=== PATIENT | male | born 1935 | race Caucasian/White ===

== ENCOUNTER 2018-09-27 20:13 | Inpatient (IN) | payer OTHER ==
[~2018-09-27] VITALS: Ht 175.3 cm; Wt 77.7 kg
[~2018-09-27 20:13] MED LIST: ASPIRIN; AVODART0.5 MG PO; TYLENOL
[2018-09-27] MEDS ORDERED: ONDANSETRON HCL INJ 2 MG/ML VIAL IV STA (21:10)
[2018-09-27] MEDS ORDERED: SODIUM CHLORIDE 0.9% 1000ML 1,000 ML IV ONE (21:15)
[2018-09-27] MEDS ORDERED: DIATRIZOATE MEGL/DIATRIZOA SOD 30 ML BTL PO ONE (22:10)
[2018-09-27 22:57] LABS: BASOPHILS % 0.4 % (0.0-1.0); HEMATOCRIT 49.3 % (38.2-49.6); HEMOGLOBIN 16.3 g/dL (14.0-18.0); LYMPHOCYTES # (AUTO) 0.4 (1.0-3.2); LYMPHOCYTES % 3.9 % (18.0-39.1); MEAN CORPUSCULAR HEMOGLOBIN 31.1 pg (28-32); MEAN CORPUSCULAR HGB CONC 33.1 g/dL (31-35); MEAN CORPUSCULAR VOLUME 94.1 fL (81-99); MONOCYTES # (AUTO) 0.4 (0.2-0.8); NEUTROPHILS # (AUTO) 9.8 (2.1-6.9); NEUTROPHILS % 91.3 % (38.7-80.0); PLATELET COUNT 277 x10e3/uL (140-360); RED BLOOD COUNT 5.24 x10e6/uL (4.3-5.7); RED CELL DISTRIBUTION WIDTH 12.8 % (11.7-14.4)
[2018-09-27 23:08] LABS: ALANINE AMINOTRANSFERASE 22 IU/L (0-55); ALBUMIN/GLOBULIN RATIO 1.1 (0.8-2.0); ALKALINE PHOSPHATASE 95 IU/L (40-150); AMYLASE 81 U/L (25-125); ANION GAP 13.8 mmol/L (8-16); BLOOD UREA NITROGEN 13 mg/dL (7-26); BUN/CREATININE RATIO 12 (6-25); CALCIUM 8.9 mg/dL (8.4-10.2); CARBON DIOXIDE 26 mmol/L (22-29); CHLORIDE 99 mmol/L (98-107); CREATININE, SERUM 1.12 mg/dL (0.72-1.25); EST GLOMERULAR FILTRATION RATE > 60 ML/MIN (60-); GLUCOSE 166 mg/dL (74-118); LIPASE 26 U/L (8-78); POTASSIUM 3.8 mmol/L (3.5-5.1); SODIUM 135 mmol/L (136-145)
[2018-09-27] MEDS ORDERED: SODIUM CHLORIDE 0.9% 50ML 50 ML ONE (23:36)
[2018-09-27] MEDS ORDERED: IOPAMIDOL 370 MG/ML 200 ML INFUS..BTL INJ ONE (23:36)
--- NOTE | 2018-09-28 00:21 | Diagnostic Imaging Report ---
EXAM: CT ABDOMEN AND PELVIS with IV CONTRAST DATE: 09/27/2018 9:10 PM Time stamp on Exam: 2348 hours INDICATION: Abdominal pain, nausea and vomiting COMPARISON: None TECHNIQUE: The abdomen and pelvis were scanned using a multidetector helical scanner. Coronal and sagittal reformations were obtained. Dose modulation, iterative reconstruction, and/or weight based adjustment of the mA/kV was utilized to reduce the radiation dose to as low as reasonably achievable. Routine protocol performed. IV Contrast: 100 cc Isovue 370 Oral Contrast: Gastrografin FINDINGS: LOWER THORAX: Bibasilar linear atelectasis. Pulmonary nodules in the left lung base measuring 6 mm and 7 mm. LIVER: No masses BILIARY: The gallbladder is contracted around gallstones. SPLEEN: No masses PANCREAS: No masses ADRENALS: No nodules KIDNEYS: Symmetric perfusion. No enhancing masses. No hydronephrosis. GI TRACT: The ascending colon is distended with fluid. The cecum is dilated up to 9 cm. Distention of the remainder of the colon to a lesser extent. Nonspecific narrowing of the distal sigmoid colon. The sigmoid colon is redundant. There is oral contrast in the rectum, presumably from a prior exam as on today's exam the administered oral contrast is only in the small bowel. The appendix is not identified. VESSELS: Mild atherosclerotic changes of the abdominal aorta and branches without aneurysm. PERITONEUM/RETROPERITONEUM: No free air or fluid LYMPH NODES: No lymphadenopathy REPRODUCTIVE ORGANS: The prostate is enlarged measuring 5.7 cm in diameter. BLADDER: Moderately distended. SOFT TISSUES: There is a left inguinal hernia containing fat and a small portion of sigmoid colon, that is not resulting in obstruction. BONES: No suspicious bone lesions. IMPRESSION: 1. The ascending colon is dilated with the cecum measuring 9 cm in diameter. The remainder of the colon is distended to a lesser extent. There is a nonspecific mild luminal narrowing of the distal sigmoid colon that could represent stricture or peristalsis. Differential includes partial large bowel obstruction or adynamic ileus. 2. Left inguinal hernia containing fat and a small portion of sigmoid colon not causing obstruction. 3. Cholelithiasis without evidence of acute cholecystitis. 4. There are 2 pulmonary nodules in the left lung base measuring 6 mm and 7 mm. Current recommendations are for follow-up CT of the chest without IV contrast, low-dose protocol in 3-6 months if there are no priors for comparison. Signed by: Dr. Nano Sutton M.D. on 09/28/2018 12:18 AM
[2018-09-28 01:26] LABS: BILIRUBIN,URINE NEGATIVE (NEGATIVE); CLARITY,URINE CLEAR (CLEAR); COLOR,URINE YELLOW (YELLOW); KETONES,URINE TRACE (NEGATIVE); LEUKOCYTE ESTERASE ,URINE NEGATIVE (NEGATIVE); NITRITE,URINE NEGATIVE (NEGATIVE); PROTEIN,URINE DIPSTICK NEGATIVE (NEGATIVE); URINE UROBILINOGEN 0.2 mg/dL (0.2 - 1)
[2018-09-28] MEDS ORDERED: HYDRALAZINE HCL 20 MG/ML VIAL IV PRN (01:30)
--- OUTSIDE RECORDS SUMMARY | 2018-09-28 01:33 | XMS REPORT ---
Author [facility] Address Unknown Phone Unavailable Care Team Providers Care Shoulder Boner Name Role Phone Bindu BERNAL Unavailable Unavailable Problems This patient has no known problems. Allergies, Adverse Reactions, Alerts This patient has no known allergies or adverse reactions. Medications This patient has no known medications. Results Test Description Test Time Test Comments Text Results Atomic Results Result Comments CT ABDOMEN/PELVIS W 2018-09-28 00:03:00 [place] [address] Patient Name: ROGER JACOB MR #: [id number] : 1935 Age/Sex: 83/M Req #: [id number] Adm Physician: Ordered by: LIDIA BERNAL MD Report #: [id number] Location: ER Room/Bed: Procedure: [id number] CT/CT ABDOMEN/PELVIS W Exam Date: 09/27/18 Exam Time: 2345 REPORT STATUS: Signed EXAM: CT ABDOMEN AND PELVIS with IV CONTRAST DATE: 09/27/2018 9:10 PM Time stamp on Exam: 2348 hours INDICATION: Abdominal pain, nausea and vomiting COMPARISON: None TECHNIQUE: The abdomen and pelvis were scanned using a multidetector helical scanner. Coronal and sagittal reformations were obtained. Dose modulation, iterative reconstruction, and/or weight based adjustment of the mA/kV was utilized to reduce the radiation dose to as low as reasonably achievable. Routine protocol performed. IV Contrast: 100 cc Isovue 370 Oral Contrast: Gastrografin FINDINGS: LOWER THORAX: Bibasilar linear atelectasis. Pulmonary nodules in the left lung base measuring 6 mm and 7 mm. LIVER: No masses BILIARY: The gallbladder is contracted around gallstones. SPLEEN: No masses PANCREAS: No masses ADRENALS: No nodules KIDNEYS: Symmetric perfusion. No enhancing masses. No hydronephrosis. GI TRACT: The ascending colon is distended with fluid. The cecum is dilated up to 9 cm. Distention of the remainder of the colon to a lesser extent. Nonspecific narrowing of the distal sigmoid colon. The sigmoid colon is redundant. There is oral contrast in the rectum, presumably from a prior exam as on today's exam the administered oral contrast is only in the small bowel. The appendix is not identified. VESSELS: Mild atherosclerotic changes of the abdominal aorta and branches without aneurysm. PERITONEUM/RETROPERITONEUM: No free air or fluid LYMPH NODES: No lymphadenopathy REPRODUCTIVE ORGANS: The prostate is enlarged measuring 5.7 cm in diameter. BLADDER: Moderately distended. SOFT TISSUES: There is a left inguinal hernia containing fat and a small portion of sigmoid colon, that is not resulting in obstruction. BONES: No suspicious bone lesions. IMPRESSION: 1. The ascending colon is dilated with the cecum measuring 9 cm in diameter. The remainder of the colon is distended to a lesser extent. There is a nonspecific mild luminal narrowing of the distal sigmoid colon that could represent stricture or peristalsis. Differential includes partial large bowel obstruction or adynamic ileus. 2. Left inguinal hernia containing fat and a small portion of sigmoid colon not causing obstruction. 3. Cholelithiasis without evidence of acute cholecystitis. 4. There are 2 pulmonary nodules in the left lung base measuring 6 mm and 7 mm. Current recommendations are for follow-up CT of the chest without IV contrast, low- dose protocol in 3-6 months if there are no priors for comparison. Signed by: Dr. Caterina Tee M.D. on 09/28/2018 12:18 AM Dictated By: CATERINA TEE MD Transcribed By: JOSE on 09/28/1817 COPY TO: LIDIA BERNAL MD
[2018-09-28 01:37] LABS: BACTERIA,URINE RARE /HPF; EPITHELIAL CELLS,URINE RARE /LPF; MUCUS,URINE FEW (RARE); RBC,URINE 0-5 /HPF (0-5); WBC,URINE (MAN) 0-5 /HPF (0-5)
[2018-09-28] MEDS: ONDANSETRON HCL INJ 2 MG/ML VIAL IV PRN ×3 (02:26→18:52)
[2018-09-28] MEDS: MORPHINE SULFATE 2 MG/ML SYR IV PRN ×2 (02:26→14:55)
[2018-09-28] MEDS: METRONIDAZOLE 500MG/NS 100ML IV SCH ×4 (03:27→17:49)
[2018-09-28] MEDS: SODIUM CHLORIDE 0.9% 1000ML 1,000 ML IV SCH ×3 (03:27→15:52)
[2018-09-28] MEDS: PIPER-TAZ 3.375 GM / NS 50ML IV SCH ×3 (03:30→17:49)
[2018-09-28 07:30] VITALS: BP 167/97
[2018-09-28 11:52] VITALS: BP 137/78
[2018-09-28] MEDS ORDERED: DIATRIZOATE MEGL/DIATRIZOA SOD 120 ML BTL PO ONE ×2 (12:56→13:35)
[2018-09-28 14:30] VITALS: BP 181/98
[2018-09-28 16:15] VITALS: BP 181/98
--- NOTE | 2018-09-28 16:18 | Consultation ---
DATE OF CONSULTATION: September 28, 2018 SURGERY CONSULTATION REFERRING PHYSICIAN: Dr. Gerard Gates. Patient is an 83-year-old male who presented with complaints of abdominal pain. He is sort of vague as far as when the pain started, but he says the pain is in the lower abdominal, then all over his abdomen, and now he complains of epigastric abdominal pain. He came to the emergency room where evaluation with a CT scan of the abdomen and pelvis revealed calcified gallstones as well as dilated colon and a left inguinal hernia with the colon proximal to the area of the hernia being dilated, although the CT suggests that the hernia was not the cause of obstruction. Patient at this time is having bowel movements and passing flatus. He complains of epigastric abdominal pain. He is not having any nausea or vomiting. PAST MEDICAL HISTORY: Patient has a history of hypertension, but he has been noncompliant with his medication. Other medicine he is supposed to take is Avodart. HE HAS AN ALLERGY TO SULFA. He has not had previous surgeries. FAMILY HISTORY: Noncontributory. SOCIAL HISTORY: The patient does not smoke cigarettes. He occasionally drinks alcohol. REVIEW OF SYSTEMS: He has had no fever or weight loss. PHYSICAL EXAMINATION: GENERAL: The patient is awake and alert. VITALS: Normal. He is not tachycardic. HEENT: Reveals no scleral icterus. NECK: Has no masses. LUNGS: Equal breath sounds are clear bilaterally. CARDIAC: A regular rate and rhythm with no murmur. ABDOMEN: Mildly distended. It is soft. There is a left inguinal hernia which is reducible and not tender. There is no intraabdominal mass. EXTREMITIES: Warm. There is no edema. Peripheral pulses are palpable 2+. NEUROLOGIC: Grossly intact. LABORATORY DATA: The white blood cell count was 10.7 on admission. Hemoglobin 16, hematocrit 49. Chemistries were essentially normal. ASSESSMENT: This is an 83-year-old male with the findings suggestive of a large-bowel obstruction. Most likely this is due to the left inguinal hernia although it is possible there may be some intrinsic stricture of the colon and/or a mass, although no mass is definitely seen on CT scan. Patient is to be seen by GI for possible colonoscopy. If this does not reveal any mass or stricture in the colon, then he probably would benefit from repair of the hernia before he leaves the hospital. This was explained to the patient. Plan to repeat the abdominal x-ray today. There are no findings of peritonitis, no signs to suggest ischemic bowel or an acute surgical abdomen at this time. Thank you for asking me to see Mr. Jefferson. Job#: [id number] EV
[2018-09-28] MEDS ORDERED: MORPHINE SULFATE INJ 4 MG/ML INJ IV PRN (18:55)
--- NOTE | 2018-09-28 18:55 | Diagnostic Imaging Report ---
EXAM: FL GASTROGRAFIN ENEMA SINGLE CONTRAST INDICATION: Query sigmoid colonic stricture COMPARISON: CT Abdomen/Pelvis 09/27/18. FINDINGS/TECHNIQUE: DEGREASING SOLUTION RECLAIMER: Dilatation of large bowel loops is noted. Air was present in the colon from prior colonoscopy. BARIUM ENEMA: The rectum was cannulated and gastrografin was administered. The rectum and sigmoid, descending, and transverse colon was opacified. There is mild focal narrowing in the sigmoid colon with a single diverticulum. However, there is free passage of contrast beyond this point into the descending colon. No evidence of high grade obstruction or mass lesion. Fluoroscopy Time: 1.5 minutes Radiation dose: 154.5 mGy DAP IMPRESSION: Mild focal narrowing of the sigmoid colon which may represent stricture. However, contrast freely opacifies the colon beyond the point, suggesting that this narrowing is non-flow limiting. Sigmoid diverticulosis. Signed by: Dr. Bella Oshea MD on 09/28/2018 6:52 PM
--- NOTE | 2018-09-28 18:55 | Diagnostic Imaging Report ---
EXAM: FL GASTROGRAFIN ENEMA SINGLE CONTRAST INDICATION: Query sigmoid colonic stricture COMPARISON: CT Abdomen/Pelvis 09/27/18. FINDINGS/TECHNIQUE: SUPPLY TECHNICIAN: Dilatation of large bowel loops is noted. Air was present in the colon from prior colonoscopy. BARIUM ENEMA: The rectum was cannulated and gastrografin was administered. The rectum and sigmoid, descending, and transverse colon was opacified. There is mild focal narrowing in the sigmoid colon with a single diverticulum. However, there is free passage of contrast beyond this point into the descending colon. No evidence of high grade obstruction or mass lesion. Fluoroscopy Time: 1.5 minutes Radiation dose: 154.5 mGy DAP IMPRESSION: Mild focal narrowing of the sigmoid colon which may represent stricture. However, contrast freely opacifies the colon beyond the point, suggesting that this narrowing is non-flow limiting. Sigmoid diverticulosis. Signed by: Dr. Bella Oshea MD on 09/28/2018 6:52 PM
[2018-09-28 20:30] VITALS: BP 143/84
[2018-09-28] MEDS ORDERED: BELLADONNA/OPIUM 60 MG SUPP PR PRN (22:45)
--- NOTE | 2018-09-28 23:12 | Consultation ---
DATE OF CONSULTATION: September 28, 2018 UROLOGY CONSULTATION REASON FOR CONSULTATION: Urinary retention. HISTORY OF PRESENT ILLNESS: Juan J Jefferson is an 83-year-old man, who denies previous urological history. Denies previous hematuria, dysuria, urinary tract infections or urolithiasis. Denies ever seeing a urologist. The patient came in with abdominal pain, nausea, and vomiting. He underwent CT of his abdomen and pelvis. This revealed a distended bladder. Upon return to the emergency room, the emergency room staff had the patient void. He voided 200 mL. Kelly catheterization following this revealed urinary retention for 600 mL. The patient is being admitted with distended abdomen with distended loops of bowel. Urological consultation was sought for the urinary retention. PAST MEDICAL AND SURGICAL HISTORY 1. Status post right inguinal hernia repair. 2. Status post left inguinal hernia repair twice with now recurrent left inguinal hernia. 3. Hypertension, noncompliant with medications. 4. Patient must have BPH since he is supposed to be on Avodart. ALLERGIES: SULFA. SOCIAL HISTORY: The patient denies smoking, ethanol, and drug use. He drinks ethanol socially only. He is retired from working with computers. FAMILY HISTORY: Noncontributory to the urological problems. REVIEW OF SYSTEMS: Consistent with history of present illness and past medical history, otherwise negative for all systems. PHYSICAL EXAMINATION GENERAL: Very pleasant elderly male lying in bed, in no apparent distress. VITAL SIGNS: He is currently afebrile. Vital signs are currently stable. ABDOMEN: Distended, but it is soft. There is a reducible left inguinal hernia. No costovertebral angle tenderness. GENITOURINARY: Testes are descended bilaterally, bilaterally palpably normal. The patient has a normal uncircumcised male phallus with normal meatus without any lesion. There is a Kelly catheter in place draining yellow urine out. For the remaining physical examination systems, please refer to the admission history and physical on the chart. LABORATORY STUDIES: CT scan of the abdomen and pelvis revealed colonic dilation with the cecum measuring 9 cm in diameter and a left inguinal hernia containing fat and sigmoid colon. There is cholelithiasis without evidence of acute cholecystitis and the urinary bladder is distended. My examination of this CT also reveals that the patient has an enlarged prostate. The reading of the prostate radiologist was kind enough to measure this 3-dimensional object in 1 dimension with a size of 5.7 cm in diameter. Patient with white blood cell count of 10,770, hemoglobin 16.3, platelets 277,000. Patient's sodium is slightly low at 135. Creatinine is normal at 1.12. Urinalysis significant for being unremarkable. ASSESSMENT 1. Abdominal pain. 2. Bowel obstruction. 3. Nausea and vomiting is improved. 4. Urinary retention for 600 mL. 5. Obstructive BPH. 6. Incomplete bladder emptying. 7. Recurrent left inguinal hernia. 8. Kelly catheter in situ. 9. Mild hyponatremia. PLAN 1. I deferred the management of any hematological and electrolyte abnormalities to the primary physician. 2. For the abdominal issues to the general surgery on the case. 3. I recommend leaving the Kelly catheter in place. Do not remove the Kelly catheter. 4. Once the patient's gastrointestinal issues have been completely resolved. Will begin the patient on Flomax. Will then plan to follow the patient up in the office, perform urodynamic study to ensure the patient has adequate bladder function. Should that be the case, most likely transurethral resection of the prostate will be recommended. Thank you very much for allowing us in the care of your patient. I will be happy to follow him along with you as well as an outpatient Job#: [id number] CQ cc:DALILA SYED MD
[2018-09-29] VITALS (9 sets, daily range): BP systolic 121–182; BP diastolic 66–98
--- NOTE | 2018-09-29 00:36 | Consultation ---
DATE OF CONSULTATION: September 28, 2018 GI CONSULT NOTE REFERRING PHYSICIAN: Dr. Gerard Gates. REASON FOR CONSULTATION: Rule out partial colonic obstruction. HISTORY OF PRESENTING ILLNESS: An 83-year-old male who presented in the emergency room with progressive abdominal distention as well as abdominal complaint. No localized pain; however, CT scan was performed with IV contrast. This showed dilated ascending colon to 9 cm with findings suggestive of possible narrowing or stricture in sigmoid colon. Patient does not recall if he has ever had any colonoscopy. No family history of colon cancer. No definite colonic mass identified on CT. REVIEW OF SYSTEMS: A 12-point system reviewed, symptomatology is limited as per HPI. PAST MEDICAL HISTORY: Hypertension but nonadherent to medications. PAST SURGICAL HISTORY: None. FAMILY HISTORY: Noncontributory. SOCIAL HISTORY: No smoking, alcohol, or any illicit drug use. ALLERGIES: SULFA. HOME MEDICATIONS: Dutasteride, aspirin, and Tylenol. INPATIENT MEDICATIONS: List is reviewed. PHYSICAL EXAMINATION VITAL SIGNS: Temperature 98.7, pulse 94, respirations 18, blood pressure 143/84, and oxygen saturation 98% on room air. GENERAL: Not in any acute distress. Oral mucosa is moist. Anicteric sclerae. NECK: No neck or axillary adenopathy. CVS: S1 and S2 regular. LUNGS: Bilaterally grossly clear. ABDOMEN: Mild gaseous distention. Left inguinal hernia. No palpable mass. Bowel sounds almost absent. EXTREMITIES: Warm. No leg edema. LABS: WBC 10.77, hemoglobin 16.3, hematocrit 49.3, MCV 94.1, and platelet count 277,000. Sodium 135, potassium 3.8, chloride 99, bicarb 26, BUN 13, creatinine 1.12, and glucose 166. Total bilirubin 0.9, AST 24, ALT 22, alkaline phosphatase 95. Amylase and lipase normal. Urinalysis negative. CT of the abdomen and pelvis with IV contrast as well as oral contrast showed 1. Ascending colon is dilated with cecum measuring 9 cm in diameter. The remainder of the colon is distended to a lesser extent. There is a nonspecific mild luminal narrowing of the distal sigmoid colon that could represent a stricture or peristalsis. Differential included partial large-bowel obstruction or adynamic ileus. 2. Left inguinal hernia is containing fat and a small portion of sigmoid colon, not causing obstruction. 3. Cholelithiasis without evidence of any acute cholecystitis. 4. There are 2 pulmonary nodules. IMPRESSION: Dilated colon without any obvious colonic obstruction. There is some narrowing in the sigmoid colon. Abdominal examination displays no bowel sounds. This is most consistent with colonic ileus. PLAN: At this point of time, agree to continue n.p.o., IV fluids, Gastrografin enema to rule out any obstruction in the sigmoid colon. Patient will benefit from colonoscopy only once bowel sounds are normalized and we are certain that patient is having colonic motility. I thank Dr. Gates for allowing me to participate in the care of this patient. Job#: [id number]
[2018-09-29] MEDS: SODIUM CHLORIDE 0.9% 1000ML 1,000 ML IV SCH ×4 (01:18→23:26)
[2018-09-29] MEDS: PIPER-TAZ 3.375 GM / NS 50ML IV SCH ×3 (02:00→17:46)
[2018-09-29] MEDS: METRONIDAZOLE 500MG/NS 100ML IV SCH ×5 (06:00→23:25)
[2018-09-29 06:51] LABS: BASOPHILS % 0.5 % (0.0-1.0); EOSINOPHILS % 0.2 % (0.0-6.0); HEMATOCRIT 44.5 % (38.2-49.6); HEMOGLOBIN 14.9 g/dL (14.0-18.0); LYMPHOCYTES # (AUTO) 0.7 (1.0-3.2); LYMPHOCYTES % 9.8 % (18.0-39.1); MEAN CORPUSCULAR HEMOGLOBIN 31.4 pg (28-32); MEAN CORPUSCULAR HGB CONC 33.5 g/dL (31-35); MEAN CORPUSCULAR VOLUME 93.7 fL (81-99); MONOCYTES # (AUTO) 0.7 (0.2-0.8); MONOCYTES % 11.2 % (4.4-11.3); NEUTROPHILS # (AUTO) 5.2 (2.1-6.9); PLATELET COUNT 242 x10e3/uL (140-360); RED BLOOD COUNT 4.75 x10e6/uL (4.3-5.7)
[2018-09-29 07:03] LABS: ALANINE AMINOTRANSFERASE 13 IU/L (0-55); ALBUMIN 3.1 g/dL (3.5-5.0); ALBUMIN/GLOBULIN RATIO 1.1 (0.8-2.0); ALKALINE PHOSPHATASE 69 IU/L (40-150); ANION GAP 12.3 mmol/L (8-16); BLOOD UREA NITROGEN 13 mg/dL (7-26); BUN/CREATININE RATIO 12 (6-25); CALCIUM 8.7 mg/dL (8.4-10.2); CARBON DIOXIDE 26 mmol/L (22-29); CHLORIDE 109 mmol/L (98-107); EST GLOMERULAR FILTRATION RATE > 60 ML/MIN (60-); GLUCOSE 101 mg/dL (74-118); POTASSIUM 3.3 mmol/L (3.5-5.1); SODIUM 144 mmol/L (136-145)
[2018-09-29] MEDS ORDERED: BACITRACIN 50,000 UNIT VIAL ONE (14:17)
[2018-09-29] MEDS ORDERED: BUPIVACAINE HCL 0.5% INJ 30 ML VIAL INJ ONE (14:17)
[2018-09-29] MEDS ORDERED: EPHEDRINE SULFATE INJ 50 MG/10 ML SYR ONE (14:57)
[2018-09-29] MEDS ORDERED: SUCCINYLCHOLINE 200 MG/10 ML SYR ONE (14:57)
[2018-09-29] MEDS ORDERED: SEVOFLURANE INHAL SOLN 250 ML PEN BTL ONE (14:57)
[2018-09-29] MEDS ORDERED: ROCURONIUM BROMIDE 10 MG/ML 5ML VIAL ONE (14:57)
[2018-09-29] MEDS ORDERED: ONDANSETRON HCL INJ 2 MG/ML VIAL ONE (14:57)
[2018-09-29] MEDS ORDERED: DEXAMETHASONE SOD PHOS INJ 4 MG/ML VIAL ONE (14:57)
[2018-09-29] MEDS ORDERED: LIDOCAINE HCL 2% LOCAL INJ 5 ML SDV VIAL INJ ONE (14:57)
[2018-09-29] MEDS ORDERED: GLYCOPYRROLATE INJ 1MG/ 5 ML SYR ONE (14:57)
[2018-09-29] MEDS ORDERED: NEOSTIGMINE 5 MG/5ML SYR ONE (14:57)
[2018-09-29] MEDS ORDERED: PROPOFOL IV EMULSION 10 MG/ML 20 ML VIAL ONE (14:57)
[2018-09-29] MEDS ORDERED: FENTANYL CITRATE/PF 100MCG/2 ML INJ ONE (16:23)
[2018-09-29] MEDS ORDERED: HYDROCODONE/APAP 5MG-325MG TAB PO PRN (16:30)
[2018-09-29] MEDS ORDERED: ONDANSETRON HCL INJ 2 MG/ML VIAL IV PRN (16:30)
[2018-09-29] MEDS ORDERED: MORPHINE SULFATE INJ 4 MG/ML INJ IV PRN (16:30)
--- NOTE | 2018-09-29 17:19 | Operative Report ---
DATE OF PROCEDURE: September 29, 2018 PREOPERATIVE DIAGNOSIS: Recurrent left inguinal hernia, status post incarceration. POSTOPERATIVE DIAGNOSIS: Recurrent left inguinal hernia, status post incarceration. PROCEDURE: Repair of recurrent left inguinal hernia with mesh. INTERIOR DESIGN DIRECTOR: None. ANESTHESIA: General. INDICATIONS AND FINDINGS: Patient is an 83-year-old admitted to the hospital with complaints of abdominal distention and lower abdominal pain. Workup revealed a left inguinal hernia with obstruction of the sigmoid colon and colon going into the hernia. At surgery, the patient was found to have some scarring from previous surgery. There was a recurrent direct inguinal hernia. There was no evidence of an indirect hernia. TECHNIQUE: After adequate general anesthesia with the patient in the supine position, the left inguinal area was prepped and draped in a sterile fashion with ChloraPrep solution. A transverse incision was made in the left inguinal area and carried down through subcutaneous tissue and Adriana's fascia until the external oblique fascia was seen. This was opened in the direction of its fibers through the external ring. There was some scarring from previous surgery. The ilioinguinal nerve was identified and preserved. Spermatic cord was dissected free from the floor of the inguinal canal and from what was found be a large direct hernia. A herniated mass was dissected free from the surrounding tissues. The floor of the inguinal canal was then opened up through the direct hernia defect to enter the preperitoneal space. A large Prolene mesh hernia system that had been soaked in antibiotic solution was placed through the hernia defect with underlay patch opened up in the preperitoneal space. Onlay patch was laid over the floor of the inguinal canal with keyhole opening created to allow exit of the spermatic cord. The onlay patch was sutured to the shelving edge of the inguinal ligament laterally and conjoined tendon medially. This was done with interrupted sutures of 0 Prolene. Care was taken not to entrap the general femoral or iliohypogastric nerves. Once the mesh was in place, the spermatic cord and ilioinguinal nerve were returned to their normal positions. The wound was inspected for hemostasis, which was seen to be adequate. The wound was then infiltrated with 0.5% Marcaine. The external oblique fascia was then closed with a running suture of 2-0 Vicryl. Care was taken not to entrap the spermatic cord or ilioinguinal nerve. Adriana's fascia was closed with a running suture of 3-0 Vicryl. Skin was closed with a running subcuticular suture of 4-0 Vicryl. Dermabond and sterile dressing were applied. Patient tolerated the procedure well. Estimated blood loss was less than 5 mL. There were no complications. All counts were correct. The patient was taken to the recovery room in satisfactory condition. Job#: [id number] LLUVIA
--- NOTE | 2018-09-29 22:45 | Progress Note ---
DATE: September 29, 2018 PROGRESS NOTE SUBJECTIVE: Patient reported some lower quadrant abdominal pain. He was found to have incarcerated left inguinal hernia. Patient was taken to the OR today and got the surgery done by Dr. Franco. REVIEW OF SYSTEMS GENERAL: No fever or chills. RESPIRATORY: No cough or expectoration. CVS: No chest pain or palpitation. MEDICATIONS: Reviewed as per MAR. PHYSICAL EXAMINATION VITAL SIGNS: Temperature 98.3, pulse ranging from 120-109, respirations 16, blood pressure 163/88-134/85, and oxygen saturation 96% on room air. GENERAL: Not in any acute distress. HEENT: Oral mucosa is moist. ABDOMEN: Soft. Incisional tenderness in the left lower quadrant. Bowel sounds minimally present. Rest of the abdomen is nontender. LABS: WBC 6.63, hemoglobin 14.9, hematocrit 44.5, and platelet count 242. Electrolytes are normal except potassium has come down to 3.3 from 3.8. Liver enzymes are normal. ASSESSMENT 1. Incarcerated left inguinal hernia, status post surgery. 2. Sigmoid colon narrowing, which could be probably nothing versus possible narrowing from previous ischemic colitis. I do not suspect any mass in the sigmoid colon. PLAN: Postop care as per surgery. Allow oral feed as per surgery. Elective outpatient colonoscopy within 2 weeks post discharge. Job#: [id number] RTY
[2018-09-30 01:18] VITALS: BP 138/85
[2018-09-30] MEDS: PIPER-TAZ 3.375 GM / NS 50ML IV SCH ×3 (01:21→17:47)
[2018-09-30] MEDS: METRONIDAZOLE 500MG/NS 100ML IV SCH (05:27)
[2018-09-30 06:43] VITALS: BP 148/90
[2018-09-30 07:37] VITALS: BP 138/82
[2018-09-30] MEDS: SODIUM CHLORIDE 0.9% 1000ML 1,000 ML IV SCH (09:53)
[2018-09-30 11:23] VITALS: BP 127/63
[2018-09-30 12:05] LABS: BASOPHILS % 0.4 % (0.0-1.0); EOSINOPHILS % 0.1 % (0.0-6.0); HEMATOCRIT 43.4 % (38.2-49.6); HEMOGLOBIN 14.4 g/dL (14.0-18.0); LYMPHOCYTES # (AUTO) 0.7 (1.0-3.2); LYMPHOCYTES % 6.5 % (18.0-39.1); MEAN CORPUSCULAR HEMOGLOBIN 31.5 pg (28-32); MEAN CORPUSCULAR HGB CONC 33.2 g/dL (31-35); MONOCYTES # (AUTO) 1.2 (0.2-0.8); MONOCYTES % 11.9 % (4.4-11.3); NEUTROPHILS # (AUTO) 8.2 (2.1-6.9); NEUTROPHILS % 80.8 % (38.7-80.0); PLATELET COUNT 233 x10e3/uL (140-360); RED BLOOD COUNT 4.57 x10e6/uL (4.3-5.7); RED CELL DISTRIBUTION WIDTH 13.3 % (11.7-14.4)
[2018-09-30 12:29] LABS: ANION GAP 11.7 mmol/L (8-16); CALCIUM 8.6 mg/dL (8.4-10.2); CREATININE, SERUM 1.2 mg/dL (0.72-1.25); POTASSIUM 3.7 mmol/L (3.5-5.1)
[2018-09-30] MEDS ORDERED: MAGNESIUM/ALUMINUM/SIMETHICONE 30 ML UDC PO PRN (15:00)
[2018-09-30 15:37] VITALS: BP 144/82
[2018-09-30 19:20] VITALS: BP 159/83
[2018-10-01] VITALS: BP 142/68
[2018-10-01 04:00] VITALS: BP 141/74
[2018-10-01] MEDS: PIPER-TAZ 3.375 GM / NS 50ML IV SCH ×2 (04:24→10:00)
[2018-10-01 07:10] VITALS: BP 143/88
[2018-10-01 07:50] VITALS: BP 143/88
[2018-10-01] MEDS ORDERED: DUTASTERIDE 0.5 MG CAP PO SCH (09:00)
[2018-10-01] MEDS ORDERED: ACETAMINOPHEN 325 MG TAB PO PRN (10:00)
[2018-10-01] MEDS ORDERED: NORCO 5-325 TA1 EACH PO (11:07)
[2018-10-01] MEDS ORDERED: FLOMAX0.4 MG PO (11:08)
[2018-10-01] MEDS ORDERED: LEVAQUIN500 MG PO (11:08)
[2018-10-01] MEDS ORDERED: DIFLUCAN100 MG PO (11:09)
[2018-10-01] MEDS ORDERED: SENNA S TABLET1 EACH PO (11:10)
[2018-10-01 11:56] VITALS: BP 149/82
--- NOTE | 2018-10-01 22:24 | Discharge Summary ---
PRIMARY CARE PHYSICIAN: Dr. Eron Hill [facility] 1. Dr. James Franco 2. Dr. Kwasi Ashford 3. Dr. Vinnie Weber FINAL DIAGNOSES 1. Status post ileus. 2. Status post left inguinal hernia repair with early bowel incarceration. 3. Urinary retention secondary to enlarged prostate, now having a Kelly catheter placement and will go home with a Kelly catheter. SUMMARY: An 83-year-old male, who came in with ileus, abdominal pain. He has a large left inguinal hernia that was recurrent. Patient was also having pain in the area as well. He was having difficulty urination. Kelly catheter subsequently placed. Patient also has history of enlarged prostate. He is on dutasteride. Patient subsequently seen by Dr. James Franco. He has the left inguinal hernia repair. The patient was stable. Left groin wound was intact clean, no swelling. He had a low-grade however. The patient is stable. He is comfortable. He was following all his diet. Kelly catheter leg bag has been placed. Patient will go home today with 1. Levaquin 500 mg daily for 7 days. 2. Diflucan 100 mg daily for 7 days. 3. Flomax 0.4 mg q.p.m. 4. [place] p.r.n. for pain. 5. Senna-S 1 tablet b.i.d. to prevent constipation. Patient instructed to follow up with Dr. Franco and Dr. Vinnie Weber within 1 to 2 weeks. The patient is to follow up with his family doctor for medication reconciliation and hospital followup. Job#: [id number] MANISH
== END 2018-10-01 13:16 | disposition home or self-care (01) | DRG 351 ==
LOC: ER 20:13 → OBSVTOIN 09-28 01:30 → ERHOLD 09-28 01:30 → MED/SURG3 09-28 12:53
PROVIDERS: ADMIT Internal Medicine; ATTEND Internal Medicine
PROC: 0YU60JZ Supplement Left Inguinal Region with Synthetic Substitute, Open Approach (ICD-10-PCS; principal; 2018-09-29 15:00)
DX: K40.31 Unilateral inguinal hernia, with obstruction, without gangrene, recurrent (principal); K56.7 Ileus, unspecified; N13.8 Other obstructive and reflux uropathy; E87.1 Hypo-osmolality and hyponatremia; I10 Essential (primary) hypertension; Z91.14 Patient's other noncompliance with medication regimen; N40.1 Benign prostatic hyperplasia with lower urinary tract symptoms; R33.8 Other retention of urine; R39.14 Feeling of incomplete bladder emptying; Z88.2 Allergy status to sulfonamides; E87.6 Hypokalemia
CPT/HCPCS: 36415; 51700; 74019; 74177; 74270; 80048; 80053; 81001; 82150; 83690; 85025; 96374; 96375; C1781; J0360; J1100; J2001; J2270; J2405; J2543; J7030; Q9963; Q9967

== ENCOUNTER 2021-06-17 18:34 | Observation (INO) | payer MEDICARE, OTHER ==
[~2021-06-17] VITALS: Ht 175.3 cm; Wt 74.8 kg
[~2021-06-17 18:34] MED LIST changes: +DIFLUCAN100 MG PO; +FLOMAX0.4 MG PO; +LEVAQUIN500 MG PO; +NORCO 5-325 TA1 EACH PO; +SENNA S TABLET1 EACH PO
[2021-06-17 19:38] LABS: BASOPHILS # (AUTO) 0.1 (0.0-0.1); BASOPHILS % 0.8 % (0.0-1.0); EOSINOPHILS # (AUTO) 0.1 (0.0-0.4); EOSINOPHILS % 1.1 % (0.0-6.0); HEMATOCRIT 50.6 % (38.2-49.6); HEMOGLOBIN 16.4 g/dL (14.0-18.0); LYMPHOCYTES % 13.3 % (18.0-39.1); MEAN CORPUSCULAR HEMOGLOBIN 30.9 pg (28-32); MEAN CORPUSCULAR HGB CONC 32.4 g/dL (31-35); MEAN CORPUSCULAR VOLUME 95.5 fL (81-99); MONOCYTES # (AUTO) 0.8 (0.2-0.8); MONOCYTES % 10.9 % (4.4-11.3); NEUTROPHILS # (AUTO) 5.4 (2.1-6.9); NEUTROPHILS % 73.6 % (38.7-80.0); PLATELET COUNT 292 x10e3/uL (140-360); RED CELL DISTRIBUTION WIDTH 13.3 % (11.7-14.4)
[2021-06-17 19:48] LABS: INR 0.88; PARTIAL THROMBOPLASTIN TIME 31.4 seconds (23.8-35.5); PROTHROMBIN TIME 12.1 seconds (11.9-14.5)
[2021-06-17 19:55] LABS: ALBUMIN 3.8 g/dL (3.5-5.0); ALBUMIN/GLOBULIN RATIO 1.1 (0.8-2.0); ANION GAP 13.2 mmol/L (8-16); CALCIUM 9.5 mg/dL (8.4-10.2); CREATININE, SERUM 1.19 mg/dL (0.72-1.25); POTASSIUM 4.2 mmol/L (3.5-5.1)
[2021-06-17 20:01] LABS: CREATINE KINASE MB 1.4 ng/mL (0-5.0)
[2021-06-17] MEDS ORDERED: ASPIRIN 81 MG CHEW TAB PO STA (21:29)
[2021-06-17] MEDS ORDERED: SODIUM CHLORIDE FLUSH 10 ML SYR INJ PRN (21:45)
[2021-06-17] MEDS ORDERED: ONDANSETRON HCL INJ 2MG/ML 2ML 2 MG/ML VIAL IV PRN (22:45)
[2021-06-17] MEDS ORDERED: ACETAMINOPHEN 325 MG TAB PO PRN (22:45)
[2021-06-17] MEDS ORDERED: HYDROCODONE/APAP 5MG-325MG TAB PO PRN (22:45)
[2021-06-17] MEDS ORDERED: METOPROLOL TARTRATE 25 MG TAB PO SCH (22:45)
[2021-06-17 23:30] VITALS: BP 174/96
[2021-06-17] MEDS: MECLIZINE HCL 12.5 MG TAB PO SCH (23:32)
[2021-06-17] MEDS ORDERED: LISINOPRIL10 MG PO (23:37)
[2021-06-18 00:18] VITALS: BP 174/96
[2021-06-18 04:50] LABS: BASOPHILS # (AUTO) 0.1 (0.0-0.1); BASOPHILS % 1.2 % (0.0-1.0); EOSINOPHILS # (AUTO) 0.3 (0.0-0.4); EOSINOPHILS % 5.3 % (0.0-6.0); HEMATOCRIT 45.5 % (38.2-49.6); HEMOGLOBIN 14.8 g/dL (14.0-18.0); LYMPHOCYTES # (AUTO) 0.9 (1.0-3.2); LYMPHOCYTES % 15.5 % (18.0-39.1); MEAN CORPUSCULAR HEMOGLOBIN 31.3 pg (28-32); MEAN CORPUSCULAR HGB CONC 32.5 g/dL (31-35); MEAN CORPUSCULAR VOLUME 96.2 fL (81-99); MONOCYTES # (AUTO) 0.8 (0.2-0.8); NEUTROPHILS # (AUTO) 3.9 (2.1-6.9); NEUTROPHILS % 64.7 % (38.7-80.0); PLATELET COUNT 272 x10e3/uL (140-360); RED BLOOD COUNT 4.73 x10e6/uL (4.3-5.7); RED CELL DISTRIBUTION WIDTH 13.2 % (11.7-14.4)
[2021-06-18 05:14] LABS: ALBUMIN 3.2 g/dL (3.5-5.0); ALBUMIN/GLOBULIN RATIO 1.1 (0.8-2.0); ANION GAP 12.1 mmol/L (8-16); CALCIUM 8.7 mg/dL (8.4-10.2); CREATININE, SERUM 1.09 mg/dL (0.72-1.25); POTASSIUM 4.1 mmol/L (3.5-5.1)
[2021-06-18] MEDS: MECLIZINE HCL 12.5 MG TAB PO SCH ×2 (05:22→12:20)
[2021-06-18 06:01] VITALS: BP 143/81
[2021-06-18 06:04] LABS: CREATINE KINASE MB 1.6 ng/mL (0-5.0)
[2021-06-18 08:02] VITALS: BP 138/82
[2021-06-18] MEDS ORDERED: SENNA-S TABLET PO SCH ×2 (09:00)
[2021-06-18] MEDS ORDERED: ASPIRIN 81 MG CHEW TAB PO SCH (09:00)
[2021-06-18] MEDS ORDERED: METOPROLOL TARTRATE 25 MG TAB PO SCH (09:00)
[2021-06-18 09:53] VITALS: BP 138/82
[2021-06-18 12:00] VITALS: BP 146/95
[2021-06-18 14:46] LABS: CREATINE KINASE MB 1.7 ng/mL (0-5.0)
[2021-06-18 16:00] VITALS: BP 152/85
[2021-06-18] MEDS ORDERED: METOPROLOL TART25 MG PO (16:07)
[2021-06-18] MEDS ORDERED: ASPIRIN81 MG PO (16:07)
[2021-06-18] MEDS ORDERED: MECLIZINE HCL12.5 MG PO (16:08)
[2021-06-18] MEDS ORDERED: TAMSULOSIN HCL 0.4 MG CAP PO SCH (21:00)
== END 2021-06-18 16:55 | disposition home or self-care (01) ==
LOC: ER 19:26 → ERHOLD 22:03 → MED/SURG 23:06
PROVIDERS: ADMIT Internal Medicine; ATTEND Internal Medicine
DX: H81.13 Benign paroxysmal vertigo, bilateral (principal); I10 Essential (primary) hypertension; Z88.2 Allergy status to sulfonamides; H93.13 Tinnitus, bilateral
CPT/HCPCS: 36415 ×2; 70450; 70544; 70547; 70551; 71045; 80053 ×2; 82550 ×2; 82553 ×2; 84484 ×2; 85025 ×2; 85610; 85730; 93005; 93306; 93880; 99284; G0378 ×2; J8597 ×2; U0002